=== PATIENT | female | born 1970 | race Caucasian/White ===

== ENCOUNTER 2021-01-16 09:57 | Emergency (ER) | payer OTHER, MEDICAID ==
[~2021-01-16] VITALS: Ht 165.1 cm; Wt 72.7 kg
[2021-01-16] MEDS ORDERED: LIDOcaine 5% patch TP ONE (10:20)
[2021-01-16] MEDS ORDERED: acetaminophen 325mg tablet PO ONE (10:20)
[2021-01-16] MEDS ORDERED: HYDR-3965 PO (10:23)
[2021-01-16] MEDS ORDERED: LIDO700A32 TOP (10:23)
[2021-01-16 10:37] VITALS: BP 123/81
== END 2021-01-16 10:38 | disposition home or self-care (01) ==
LOC: ER 09:57
DX: R07.81 Pleurodynia (principal); Z88.6 Allergy status to analgesic agent; Z88.0 Allergy status to penicillin; Z88.1 Allergy status to other antibiotic agents; Z88.8 Allergy status to other drugs, medicaments and biological substances; Z79.899 Other long term (current) drug therapy
CPT/HCPCS: 71045; 99283; 99284

== ENCOUNTER 2022-04-29 14:10 | Emergency (ER) | payer OTHER, MEDICAID ==
[~2022-04-29] VITALS: Ht 165.1 cm; Wt 75.0 kg
[~2022-04-29 14:10] MED LIST: LIDO700A32 TOP
[2022-04-29 14:35] VITALS: BP 154/86
== END 2022-04-29 17:17 | disposition left against medical advice (07) ==
LOC: ER 14:10
DX: M79.641 Pain in right hand (principal); Z53.21 Procedure and treatment not carried out due to patient leaving prior to being seen by health care provider
CPT/HCPCS: 73130